=== PATIENT | female | born 1960 ===

== ENCOUNTER 2018-07-19 09:24 | Emergency (ER) | payer MEDICAID ==
--- NOTE | 2018-07-19 10:56 | RAD ---
Date of service: 07/19/2018 PROCEDURE: Left Wrist Radiographs. HISTORY: Pain/swelling on dorsal, radial aspect, no trauma COMPARISON: None. FINDINGS: BONES: There is a impacted fracture distal radial metaphysis-epiphysis. Lateral view suggests some cortical offset perhaps also involving the ulna. Ossifications volar and dorsal of the carpus present ossific debris and/or osseous avulsion injuries at these locations are all considerations. Current clinical history states no trauma-subacute trauma and/or subacute to chronic trauma are considerations. Lunate sclerotic focus bone islands favored. JOINTS: No dislocation. Trace 1st carpal metacarpal joint arthrosis. Mild radial carpal joint arthrosis. SOFT TISSUES: Minimal fullness. OTHER FINDINGS: None. IMPRESSION: Impacted distal radial metaphyseal-epiphyseal fracture. Concomitant ulnar fracture is to be considered. Subacute fractures are a consideration given the history of no acute trauma history being provided. Clinical correlation is essential. If further evaluation is needed consider MRI of the wrist. No dislocation. Concomitant minimal-mild osteoarthrosis Other findings as above. Comments: No preliminary ER impression at this time. Comments: Study marked for PA review .
--- NOTE | 2018-07-19 11:25 | C.PDOC ---
History Of Present Illness Pt c/o left wrist pain. Denies trauma. Time Seen by Provider: 07/19/18 09:43 Chief Complaint (Nursing): Finger,Hand,&Wrist History Per: Patient Onset/Duration Of Symptoms: Days (1) Current Symptoms Are (Timing): Worse Quality: "Pain" Severity: Moderate Exacerbating Factor(s): Movement Additional History Per: Prior Records Past Medical History Reviewed: Historical Data, Nursing Documentation, Vital Signs Vital Signs: Last Vital Signs Temp 98.5 F 07/19/18 09:31 Pulse 92 H 07/19/18 09:31 Resp 20 07/19/18 09:31 BP 173/97 H 07/19/18 09:31 Pulse Ox 99 07/19/18 09:31 - Medical History PMH: Asthma Surgical History: Tonsillectomy - [facility] DIVISION OF PERINEUM SKIN, EXTERNAL APPROACH (02/10/16) EXCISION OF HEMORRHOIDAL PLEXUS, PERCUTANEOUS APPROACH (02/10/16) INSPECTION OF LOWER INTESTINAL TRACT, ENDO (02/10/16) Family History: States: Unknown Family Hx - Social History Hx Alcohol Use: No Hx Substance Use: No - Immunization History Hx Tetanus Toxoid Vaccination: No Hx Influenza Vaccination: No Hx Pneumococcal Vaccination: No Review Of Systems Except As Marked, All Systems Reviewed And Found Negative. Constitutional: Negative for: Fever, Weakness Cardiovascular: Negative for: Chest Pain Respiratory: Negative for: Shortness of Breath Musculoskeletal: Negative for: Neck Pain, Arm Pain, Hand Pain Neurological: Negative for: Weakness, Numbness Physical Exam - Physical Exam Appears: Non-toxic, No Acute Distress Skin: Warm, Dry Head: Atraumatic, Normacephalic Eye(s): bilateral: PERRL, EOMI Extremity: Normal ROM, Tenderness (on dorsal/radial aspect of left wrist with erythema and swelling.), Capillary Refill (wnl) Pulses: Left Radial: Normal Neurological/Psych: Oriented x3, Normal Motor, Normal Sensation ED Course And Treatment O2 Sat by Pulse Oximetry: 99 Pulse Ox Interpretation: Normal - Other Rad Left wrist x-rays X-Ray: Viewed By Me, Read By Radiologist Interpretation: IMPRESSION: Impacted distal radial metaphyseal-epiphyseal fracture. Concomitant ulnar fracture is to be considered. Subacute fractures are a consideration given the history of no acute trauma history being provided. Clinical correlation is essential. If further evaluation is needed consider M RI of the wrist. No dislocation. Concomitant minimal-mild osteoarthrosis Progress Note: Pt was placed in a left forearm sugar-tong splint by machine operator slitter technician and sling, checked by me. Reassessment Condition: Improved Disposition Counseled Patient/Family Regarding: Studies Performed, Diagnosis, Need For Followup, Rx Given - Disposition Referrals: Aletha Hoffmann MD [Staff Provider] - [facility] at [facility] [Outside] Disposition: HOME/ ROUTINE Disposition Time: 11:29 Condition: STABLE Additional Instructions: Keep splint clean and dry. Use sling as instructed. Follow up with Orthopedic/Hand specialist within 1-2 week for further evaluation and treatment. Return to the ER if you develops weakness, numbness, severe pain, worsening of symptoms or if you have any other concerns. Prescriptions: Naproxen 375 mg PO BID PRN #20 tablet PRN Reason: Pain, Moderate (4-7) Instructions: Wrist Fracture (DC) Forms: [facility] (Dive[place]) - Clinical Impression Clinical Impression: Fracture of left distal radius
[2018-07-19 12:00] VITALS: BP 135/82; PULSE 78; RESP 18; TEMP 98.1; O2SAT 100
== END 2018-07-19 11:59 | disposition home or self-care (01) ==
LOC: C.ER 09:24
DX: S52.592A Other fractures of lower end of left radius, initial encounter for closed fracture (principal); X58.XXXA Exposure to other specified factors, initial encounter
CPT/HCPCS: 29125; 73110; 96372; 99285; J1885